=== PATIENT | male | born 1955 | race Caucasian/White ===

== ENCOUNTER 2018-03-31 18:14 | Emergency (ER) | payer OTHER ==
[2018-03-31 18:21] VITALS: BP 150/96
--- NOTE | 2018-03-31 18:25 | UC ---
Complaint Male HPI - HPI Summary HPI Summary: 62 yo male presents with left groin pain since earlier today. He tells me that earlier this afternoon he was raking his lawn when he felt a pull sensation in his left groin followed by pain. He continued to rake, but had to stop due to pain. He went inside and sat down, eventually pain subsided. He feels a bulge in the area. Came to for eval. Denies dysuria, fever, chills, abdominal pain , n/v. - History of Current Complaint Chief Complaint: UCAbdominalPain Stated Complaint: TENDER L GROIN AREA Time Seen by Provider: 03/31/18 18:24 Hx Obtained From: Patient Onset/Duration: Sudden Onset Severity Initially: Moderate Severity Currently: Mild Pain Intensity: 4 Pain Scale Used: 0-10 Numeric - Allergies/Home Medications Allergies/Adverse Reactions: Allergies Allergy/AdvReac Type Severity Reaction Status Date / Time No Known Allergies Allergy Verified 03/31/18 18:21 Home Medications: Home Medications Terazosin CAP* [Hytrin CAP 5 MG*] 1 tab PO BID 03/31/18 [History Confirmed 03/31] PMH/Surg Hx/FS Hx/Imm Hx - Additional Past Medical History Additional PMH: BPH Previously Healthy: Yes - Surgical History Surgical History: None - Family History Known Family History: Positive: None - Social History Occupation: Retired Lives: With Family Alcohol Use: Occasionally Substance Use Type: None Smoking Status (MU): Never Smoked Tobacco Review of Systems Constitutional: Negative Skin: Negative Respiratory: Negative Cardiovascular: Negative Gastrointestinal: Other - Left groin bulge and pain Genitourinary: Negative Neurovascular: Negative Neurological: Negative Psychological: Negative All Other Systems Reviewed And Are Negative: Yes Physical Exam - Summary Physical Exam Summary: GENERAL: NAD. WDWN. No pain distress. SKIN: No rashes, sores, lesions, or open wounds. NECK: Supple. Nontender. No lymphadenopathy. CHEST: CTAB. No r/r/w. No accessory muscle use. Breathing comfortably and in no distress. CV: RRR. Without m/r/g. Pulses intact. Brisk cap refill. ABDOMEN: Soft. NTTP. No distention or guarding. No organomegaly. Bowel sounds present NEURO: Alert. CN II-XII grossly intact. PSYCH: Age appropriate behavior. Triage Information Reviewed: Yes Vital Signs: Initial Vital Signs Temp 99.1 F 03/31/18 18:19 Pulse 90 03/31/18 18:19 Resp 12 03/31/18 18:19 BP 150/96 03/31/18 18:19 Pulse Ox 98 03/31/18 18:19 Male Genital Exam: Positive: Hernia Mass - at left inguinal ligament. Mild TTP. Reducible, Inguinal Tenderness - Left. Negative: Epididymal Tenderness, Erythema, Scrotum Tenderness (R), Scrotum Tenderness (L), Testicular Tenderness (R), Testicular Tenderness (L), Urethral Discharge Complaint Male Course/Dx - Course Course Of Treatment: Suspect inguinal hernia. Pt wishes to follow up with his PCP this week for further eval and potential surgical referral. - Differential Dx/Diagnosis Provider Diagnoses: Left inguinal hernia Discharge - Sign-Out/Discharge Documenting (check all that apply): Discharge/Admit/Transfer - Discharge Plan Condition: Stable Disposition: HOME Patient Education Materials: Inguinal Hernia (ED) Referrals: Deep Ellison MD [Primary Care Provider] - As Soon As Possible Additional Instructions: If you develop a fever, shortness of breath, chest pain, new or worsening symptoms - please call your PCP or go to the ED. Your blood pressure was high at todays visit. Please see your primary provider within 4 weeks for recheck and re-evaluation. 1) If you develop increasing pain, constipation, fever, nausea, or vomiting - please go directly to the ER - Billing Disposition and Condition Condition: STABLE Disposition: HOME
== END 2018-03-31 18:43 | disposition home or self-care (01) ==
LOC: UCEAST 18:14
DX: K40.90 Unilateral inguinal hernia, without obstruction or gangrene, not specified as recurrent (principal); N40.0 Benign prostatic hyperplasia without lower urinary tract symptoms
CPT/HCPCS: 99211; G0463

== ENCOUNTER 2018-07-07 10:12 | Emergency (ER) | payer OTHER ==
[2018-07-07 10:51] VITALS: BP 132/83
--- NOTE | 2018-07-07 12:12 | UC ---
Respiratory Complaint HPI - HPI Summary HPI Summary: c/o cold for the past 3 days which has moved towards his chest, making him cough all night long. Cough is mainly dry with scant sputum in the morning, has mild SOB. He has tried OTC without an effect. Has felt warm but has not taken temp at home. Denies nausea, vomitng, diarrhea. He was exposed to his father soking during his childhood and has recurrent bronchitis as well as his other siblings. - History of Current Complaint Chief Complaint: UCRespiratory Stated Complaint: SORE THROAT COUGH CONGESTION Time Seen by Provider: 07/07/18 11:54 Hx Obtained From: Patient Onset/Duration: Sudden Onset, Lasting Days Timing: Constant Severity Initially: Mild Severity Currently: Severe Pain Intensity: 7 Character: Cough: Nonproductive Aggravating Factors: Deep Breaths, Recumbent Position Alleviating Factors: Nothing Associated Signs And Symptoms: Positive: URI - Risk Factors Pulmonary Embolism Risk Factors: Negative Cardiac Risk Factors: Negative Pseudomonas Risk Factors: Negative Tuberculosis Risk Factors: Negative - Allergies/Home Medications Allergies/Adverse Reactions: Allergies Allergy/AdvReac Type Severity Reaction Status Date / Time No Known Allergies Allergy Verified 07/07/18 10:52 PMH/Surg Hx/FS Hx/Imm Hx Previously Healthy: Yes - Surgical History Surgical History: None - Family History Known Family History: Positive: Respiratory Disease - Social History Alcohol Use: Occasionally Substance Use Type: None Smoking Status (MU): Never Smoked Tobacco Review of Systems Constitutional: Fatigue Skin: Negative Eyes: Negative ENT: Sinus Congestion Respiratory: Shortness Of Breath, Cough Cardiovascular: Negative Gastrointestinal: Negative Genitourinary: Negative Neurovascular: Negative Musculoskeletal: Negative All Other Systems Reviewed And Are Negative: Yes Physical Exam Triage Information Reviewed: Yes Appearance: Well-Appearing, No Pain Distress, Well-Nourished Vital Signs: Initial Vital Signs Temp 99.7 F 07/07/18 10:48 Pulse 79 07/07/18 10:48 Resp 18 07/07/18 10:48 BP 132/83 07/07/18 10:48 Pulse Ox 97 07/07/18 10:48 Eye Exam: Normal ENT Exam: Normal Neck exam: Normal Neck: Positive: Supple, Nontender, No Lymphadenopathy Respiratory: Positive: Chest non-tender, Lungs clear, Normal breath sounds, No respiratory distress Cardiovascular: Positive: RRR, No Murmur, Pulses Normal, Brisk Capillary Refill Abdomen Description: Positive: Nontender, No Organomegaly UC Diagnostic Evaluation - Laboratory O2 Sat by Pulse Oximetry: 97 Respiratory Course/Dx - Course Course Of Treatment: Continue oral hydration, start flovent as indicated. Supportive care, f/u with PCP. Strep test negative - Differential Dx/Diagnosis Provider Diagnoses: Acute Bronchitis. URI Discharge - Sign-Out/Discharge Documenting (check all that apply): Patient Departure - Discharge Plan Condition: Good Disposition: HOME Prescriptions: Fluticasone DISKUS 100 MCG(NF) [Flovent Diskus 100 MCG(NF)] 1 puff INH BID 10 Days #1 diskus Patient Education Materials: Upper Respiratory Infection (ED), Acute Bronchitis (ED) Referrals: Deep Ellison MD [Primary Care Provider] - - Billing Disposition and Condition Condition: GOOD Disposition: Home
== END 2018-07-07 12:24 | disposition home or self-care (01) ==
LOC: UCEAST 10:12
DX: J20.9 Acute bronchitis, unspecified (principal); J06.9 Acute upper respiratory infection, unspecified
CPT/HCPCS: 87651; 99212; G0463

== ENCOUNTER → 2018-11-07 07:23 | Day surgery (SDC) | payer OTHER ==
--- NOTE | 2018-10-28 03:46 | HP ---
CC: Dr. Ellison * ADMISSION HISTORY AND PHYSICAL: DATE OF ADMISSION: 11/07/18 ATENDING SURGEON: Dr. Bk Calloway.* (DICTATED BY ROQUE SPRINGER) CHIEF COMPLAINT: Bilateral inguinal hernias; internal hemorrhoids. HISTORY OF PRESENT ILLNESS: This is a 63-year-old male who is referred by Dr. Ellison for evaluation of bilateral inguinal hernias and hemorrhoids. He states that for many years, he has had an intermittent bulge in the left groin, which had been asymptomatic until around March of this year. He had some sharp pain in that area at that time for which he was seen at Urgent Care. A hernia was diagnosed that was not felt to be incarcerated or strangulated. 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 He has not had any symptoms on the right side. In addition, he has had prior hemorrhoidectomy (combination of what sounds like excision of external and banding of internal hemorrhoids by Dr. Doshi). In recent years, he has noticed protrusion of hemorrhoidal tissue at the time of bowel movements occasionally associated with blood on the toilet paper or blood in the toilet water, though no associated pain. He is typically able to reduce the prolapsed tissue only to have it recur again at the next bowel movement. He underwent colonoscopy recently with Dr. Delacruz on 09/30/18, that was a normal study, but did confirm the presence of an internal hemorrhoid. He was seen in the office by Dr. Calloway on 08/13/18, at which time exam confirmed the presence of bilateral inguinal hernias, left greater than right. Both were reducible and relatively nontender. Anorectal exam confirmed the presence of a small thrombosed hemorrhoid at the 9 o'clock position (with the patient in prone Jackknife position). It was nontender and without any inflammation. Digital rectal exam was normal. Anoscopy showed moderately large internal hemorrhoid though the patient was unable to tolerate further exam. Dr. Calloway has discussed with him the indications for surgery, the risks, benefits, and alternatives. He would like to proceed as scheduled with laparoscopic repair of bilateral inguinal hernias with mesh and anoscopy with hemorrhoidal banding. PAST MEDICAL HISTORY: GERD, BPH. PAST SURGICAL HISTORY: Previous surgeries include left thumb surgery, left cataract extraction, and right hand surgery. No reported surgical or anesthesia problems. CURRENT MEDICATIONS: 1. Terazosin 5 mg b.i.d. 2. Omeprazole 40 mg q. day p.r.n. for reflux. He also takes the following supplements: 1. Copper. 2. Lutein. 3. Beta-carotene. 4. Lycopene. 5. Multivitamin. 6. Glucosamine. 7. MSM. (I advised that he hold supplements for 2 to 3 days preoperatively). DRUG ALLERGIES: None known. FAMILY HISTORY: Negative for anesthesia problems, bleeding or clotting disorders. SOCIAL HISTORY: The patient is single. 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 He denies the use of tobacco. He drinks on average 3 drinks per week and he denies any other recreational drug use. REVIEW OF SYSTEMS: General: No recent constitutional symptoms or acute illnesses other than some mild URI symptoms, i.e., cough. He denies fever or chills. HEENT: No problems reported. No recent change in vision. He does report some intermittent left upper eyelid spasms. Cardiovascular: No chest pain, palpitations, or history of heart murmur. Respiratory: No history of asthma, chronic cough, or shortness of breath. GI: No additions to above. He has not had any symptoms to suggest incarceration or strangulation regarding the hernias. : He does have BPH with increased frequency, but no recent changes. Endocrine: No diabetes or thyroid dysfunction. Remainder of review of systems is negative. PHYSICAL EXAMINATION GENERAL: Alert, well-nourished, well-developed male, in no acute distress. VITAL SIGNS: Height 5 feet 10 inches, weight 165 pounds, temperature 98.6, blood pressure 122/78, pulse 72, respirations 16. HEENT: Pupils are equal and round, reactive. EOMs intact. No conjunctival pallor. Oropharynx: Teeth in good repair. No intraoral lesions. NECK: No lymphadenopathy, thyromegaly, or masses. LUNGS: Clear to auscultation. No rales or wheezes. HEART: Regular rate and rhythm with no murmur noted. ABDOMEN: Soft, nontender to palpation. No palpable masses or organomegaly with the exception of the aforementioned bilateral inguinal hernias per Dr. Calloway's exam. GENITALIA: Not examined. RECTAL: Not done (see above per HPI). BACK: No spinous process or CVA tenderness. EXTREMITIES: No edema. NEUROLOGICAL: Grossly intact. SKIN: Warm and dry. No suspicious rashes or lesions noted. IMPRESSION: Bilateral inguinal hernias; internal hemorrhoids. PLAN: Laparoscopic repair, bilateral inguinal hernias with mesh; anoscopy with hemorrhoidal banding. ROQUE SPRINGER [id number]/[facility] #: [id number] MTDColin
[~2018-11-07 07:23] MED LIST: Buffered Lidocaine 0.9% SYRIN* 5 ML/SYR SYRINGE INTRADERM ONE; Bupivacaine 0.25% EPI 200,000* 30 ML SDV ONE; Bupivacaine 0.25% SDV PF* 10 ML VIAL INJ ONE; Cisatracurium* 2 MG/ML MDV 5 ML ONE; Dexamethasone IV* 4 MG/ML 1 ML (4 MG) ONE; Famotidine IV* 10 MG/ML 2 ML (20 mg) IV ONE; Famotidine IV* 10 MG/ML 2 ML (20 mg) ONE; Glycopyrrolate IV* 0.2 MG/ML 1 ML VIAL ONE; Ketorolac INJ* 30 MG/ML 1 ML VIAL ONE; Lactated Ringers 1000 ML Bag* 1,000 ML IV SCH; Lidocaine 2% JELLY* 20 ML (for OR use) ONE; Lidocaine 2% PF * 5 ML VIAL ONE; Midazolam* 1 MG/ML 5 ML VIAL (5 MG) ONE; Naloxone* 0.4 MG/ML 1 ML VIAL IV PRN; Ondansetron INJ* 2 MG/ML VIAL IV PRN; Ondansetron INJ* 2 MG/ML VIAL ONE; Propofol* 10 MG/ML 20 ML BTL ONE; ceFAZolin 2 GM PREMIX in ORs 2 GM/50 ML BAG IVPB ONE; fentaNYL* 50 MCG/ML 2 ML VIAL (100 MCG VIAL) ONE; oxyCODONE/Acetamin 5/325 MG* TAB ONE
--- NOTE | 2018-11-07 10:13 | OP ---
Operative Report - Blank - Operative Report Date of Operation: 11/07/18 Note: Brief Operative Note Preop Dx: Bilateral inguinal hernias; hemorrhoids Postop Dx: same Procedure: Laparoscopic repair bilat inguinal hemorrhoids w/ mesh; banding of hemorrhoids Anesthesia: GET Surgeon: Elli Tennis Ball Coverer Hand: ROQUE Mendenhall Fluids: 1700 ml crystalloid EBL: none Specimen: Drains: none Findings: dictated
[2018-11-07] MEDS: fentaNYL* 50 MCG/ML 2 ML VIAL (100 MCG VIAL) IV PRN ×3 (10:58→11:51)
[2018-11-07] MEDS: oxyCODONE/Acetamin 5/325 MG* TAB PO PRN ×2 (11:15→12:33)
[2018-11-07 12:34] VITALS: BP 151/89
--- NOTE | 2018-11-07 20:34 | OP ---
CC: Dr. Ellison * DATE OF OPERATION: 11/07/18 - [facility] DATE OF : 53 SURGEON: Bk Calloway MD TELEPHONIC CASE MANAGER: ROQUE Schneider. ANESTHESIOLOGIST: Dr. Menon. ANESTHESIA: General anesthetic, local infiltration by the surgeon. PRE-OP DIAGNOSES: Bilateral inguinal hernias and hemorrhoids. POST-OP DIAGNOSES: Bilateral inguinal hernias and hemorrhoids. OPERATIVE PROCEDURE: Laparoscopic repair of bilateral inguinal hernias with mesh and hemorrhoid banding. DESCRIPTION OF PROCEDURE: The patient was supine on the operating room table. After adequate general anesthetic, compression stockings, Franky Hugger warmer and intravenous antibiotics, the abdomen was clipped and prepped with antiseptic and draped in a sterile fashion. Local infiltrative anesthesia was administered. Small infraumbilical incision was created and dissection carried into the preperitoneal plane. The balloon dissector was placed and under direct vision, it was inflated to expand the preperitoneal plane. The scope was then inserted and insufflation was carried out with carbon dioxide. Two 5- mm cannulae were placed to the left and right of midline midway between umbilicus and pubis and the preperitoneal plane was developed on each side. There was bit of a direct weakness on either side and there was also an indirect sac on either side. In both cases, the indirect sac was dissected off of the cord structures. This created excellent dissection in both cases. In both cases, the preformed large patch was placed and in each case, this was trimmed by about a centimeter on its superior edge. In each case, the patch was placed into the appropriate space. The two patches overlapped by about a centimeter in the midline and the patches were tacked using the absorbable tacker. They were tacked at the pubic tubercle at the Henry ligament and at the anterior musculature. In both cases, they provided excellent coverage. Everything was in excellent condition. Hemostasis was good. The insufflation was allowed to escape as we watch the retroperitoneum cover over the patch very nicely. The cannulae were removed. The umbilical fascia was closed with a 0 Vicryl and the skin with 5-0 Vicryl followed by Steri-Strips. He was then placed up in [facility] in the lithotomy position and the anoscopy was carried out. There was a large internal hemorrhoidal cluster on the patient's left side and this was doubly banded without difficulty. He tolerated this well. Local anesthetic was administered. He was awakened and brought to Recovery in good condition. There were no complications. No drains. No pathologic specimen. Sponge and instrument counts correct. Estimated blood loss 20 mL. [id number]/[facility] #: [id number] MTDD
== END | disposition home or self-care (01) ==
LOC: OR 07:23
PROVIDERS: ATTEND Surgery
DX: K40.20 Bilateral inguinal hernia, without obstruction or gangrene, not specified as recurrent (principal); K64.8 Other hemorrhoids; K21.9 Gastro-esophageal reflux disease without esophagitis; N40.0 Benign prostatic hyperplasia without lower urinary tract symptoms
CPT/HCPCS: A9270-GY; C1776; C1781; J0690; J1100; J1885; J2250; J2405; J2704; J3010; J3490

== ENCOUNTER → 2019-04-10 09:36 | Day surgery (SDC) | payer OTHER ==
[~2019-04-10 09:36] MED LIST changes: +Betamethasone INJ* 6 MG/ML 5 ML VIAL (30 MG) ONE; -Buffered Lidocaine 0.9% SYRIN* 5 ML/SYR SYRINGE INTRADERM ONE; +Buffered Lidocaine 1% SYRIN* 1 ML/SYRINGE INTRADERM ONE; -Bupivacaine 0.25% EPI 200,000* 30 ML SDV ONE; -Bupivacaine 0.25% SDV PF* 10 ML VIAL INJ ONE; +Bupivacaine 0.25% SDV* 30 ML ONE; -Cisatracurium* 2 MG/ML MDV 5 ML ONE; -Dexamethasone IV* 4 MG/ML 1 ML (4 MG) ONE; -Famotidine IV* 10 MG/ML 2 ML (20 mg) IV ONE; -Famotidine IV* 10 MG/ML 2 ML (20 mg) ONE; -Glycopyrrolate IV* 0.2 MG/ML 1 ML VIAL ONE; -Ketorolac INJ* 30 MG/ML 1 ML VIAL ONE; +Lidocaine 1% MPF* 2 ML VIAL ONE; -Lidocaine 2% JELLY* 20 ML (for OR use) ONE; +Midazolam* 1 MG/ML 2 ML VIAL (2 MG) ONE; -Midazolam* 1 MG/ML 5 ML VIAL (5 MG) ONE; -Ondansetron INJ* 2 MG/ML VIAL ONE; +Remifentanil* 2 MG VIAL ONE; +fentaNYL* 50 MCG/ML 2 ML VIAL (100 MCG VIAL) IV PRN; -oxyCODONE/Acetamin 5/325 MG* TAB ONE
[2019-04-10 13:44] VITALS: BP 124/96
--- NOTE | 2019-04-10 20:39 | OP ---
DATE OF OPERATION: 04/10/19 - [facility] DATE OF : 53 SURGEON: Deep Wiggins MD. BLAST FURNACE KEEPER HELPER: ROQUE Mancia. An web production assistant was needed for the procedure to aid in retraction and positioning of the arm. ANESTHESIOLOGIST: Dr. Pillai. ANESTHESIA: Local MAC. PRE-OP DIAGNOSES: 1. Left index, middle, ring, and small trigger fingers. 2. Right middle and ring trigger fingers. POST-OP DIAGNOSES: 1. Left index, middle, ring and small trigger fingers. 2. Right middle and ring trigger fingers. OPERATIVE PROCEDURE: 1. Release of A1 nedra, left index finger. 2. Release of A1 nedra, left middle finger. 3. Release of A1 nedra, left ring finger. 4. Release of A1 nedra, left small finger. 5. Excision of flexor digitorum superficialis tendon slip, left ring finger. 6. Tendon sheath corticosteroid injection, right middle finger at the A1 nedra. 7. Tendon sheath corticosteroid injection at the A1 nedra of the right ring finger. INDICATIONS: Mr. Bradley has multiple trigger fingers, they are severe and they are making the hand very stiff. We had talked about risks and benefits, he wanted to proceed with surgery on the left and then I would inject the right side trigger fingers. ESTIMATED BLOOD LOSS: 5 mL. COMPLICATIONS: None. FINDINGS: See above and below. DESCRIPTION OF PROCEDURE: Mr. Bradley was seen in the preoperative holding area. The correct side, site, and procedure were identified. We came back to the operating room where the arm was prepped and draped in the usual fashion and a time-out was performed. Prior to prepping and draping, we had a time-out and then I performed a corticosteroid injection at the right middle finger A1 nedra with 1 mL of 1% lidocaine and 6 mg of betamethasone. I then performed a second corticosteroid injection at the A1 nedra of the right ring finger. This involved 1 mL of 1% lidocaine and 6 mg of betamethasone. He was sedated for this. Band-Aids were applied. The arm was exsanguinated with the Esmarch and the forearm tourniquet was inflated to 200 mmHg. I made a transverse incision along the distal palmar crease that was taken back over the A1 nedra of the index finger as well. The palmar fascia bands were released with the tenotomy scissors. Full thickness flaps were raised off the tendon sheath of each finger. I began at the index finger. I placed Ragnell retractors and protected the neurovascular bundles and then released the entirety of the A1 nedra along the radial third longitudinally. There was abundant tenosynovitis, this was all excised off the tendon. I then came to the middle finger and in like fashion I released the A1 nedra and performed a full tenosynovectomy. Again, there was abundant tenosynovitis. I then came to the ring finger and in a similar fashion I released the entirety of the A1 nedra and debrided back all of the tenosynovitis which was abundant. After I had performed a full A1 nedra release and released the first 20% in the A2 nedra, I flexed the finger down and it was still triggering. I could see where the tendons would come out from underneath the tendon sheath and then it would get stuck. I then came to the small finger and I protected the neurovascular bundles and released the A1 nedra in its entirety along with the leading edge of the A2 nedra. A full tenosynovectomy was performed. After the releases were all completed, none of the fingers were triggering except for the ring finger. I went ahead and made a V-shaped incision centered over the PIP joint and raised a full thickness flap off the tendon sheath. On the ulnar aspect, I released the A3 nedra longitudinally. I released the ulnar slip of the FDS right off its insertion. I released Camper's chiasm. I then came proximally and flexed. I pulled the FDS tendon into the proximal wound and retrieved that slip of the FDS tendon. This was tapered back proximally and then bevelled off to a nice smooth edge proximally. After I excised the ulnar slip of the FDS tendon, there was no more triggering and the finger moves smoothly. I had him flex and extend the fingers multiple times. There was no more triggering. Everything was looking good. We irrigated out all the wounds. The skin was closed with 4-0 nylon suture. Marcaine had been infiltrated around the operative area at the beginning of the procedure. Wounds were dressed. Soft dressing was applied. Tourniquet was deflated and all the fingers pinked up immediately. He was taken to the recovery room in stable condition. [id number]/[facility] #: [id number] [facility]in
== END | disposition home or self-care (01) ==
LOC: OREAST 09:36
PROVIDERS: ATTEND Orthopaedic Surgery Hand Surgery
DX: M65.322 Trigger finger, left index finger (principal); M65.332 Trigger finger, left middle finger; M65.342 Trigger finger, left ring finger; M65.352 Trigger finger, left little finger; M65.331 Trigger finger, right middle finger; M65.341 Trigger finger, right ring finger; K21.9 Gastro-esophageal reflux disease without esophagitis
CPT/HCPCS: 88304; J0690; J0702; J2250; J2704; J3010; J3490